=== PATIENT | male | born 1975 | race Two or more races ===

== ENCOUNTER → 2017-09-03 | Outpatient (CLI) | payer MEDICAID | END | disposition home or self-care (01) | LOC: Rad HDHVI 16:00 | PROVIDERS: ATTEND Internal Medicine | DX: J44.9 Chronic obstructive pulmonary disease, unspecified (principal); R07.89 Other chest pain | CPT/HCPCS: 93306 ==

== ENCOUNTER → 2017-09-24 | Outpatient (CLI) | payer MEDICAID ==
[~2017-09-24] VITALS: Ht 167.6 cm; Wt 63.5 kg
== END | disposition home or self-care (01) ==
LOC: Rad HDHVI 10:44
PROVIDERS: ATTEND Internal Medicine
DX: J44.9 Chronic obstructive pulmonary disease, unspecified (principal); R07.89 Other chest pain; Z90.49 Acquired absence of other specified parts of digestive tract
CPT/HCPCS: 93017

== ENCOUNTER 2019-07-22 11:37 | Emergency (ER) | payer SELFPAY ==
[~2019-07-22] VITALS: Ht 167.6 cm; Wt 61.2 kg
[2019-07-22 13:00] VITALS: BP 131/98
== END 2019-07-22 13:07 | disposition home or self-care (01) ==
LOC: ER 11:37
DX: J44.9 Chronic obstructive pulmonary disease, unspecified (principal)
CPT/HCPCS: 71046

== ENCOUNTER 2023-03-27 08:40 | Emergency (ER) | payer MEDICAID ==
[~2023-03-27] VITALS: Ht 167.6 cm; Wt 71.4 kg
[2023-03-27 09:52] LABS: Basophils # (auto) 0 10 ^3/uL (0-0.2); Basophils % (auto) 0.8 % (0.0-2.0); Eosinophils # (auto) 0.1 10 ^3/uL (0-0.8); Eosinophils % (auto) 1.8 % (0.0-7.0); Hematocrit 49.2 % (41.0-53.0); Hemoglobin 17.3 g/dL (13.5-17.5); Lymphocytes # (auto) 1.4 10 ^3/uL (0.4-5.4); Lymphocytes % (auto) 26.7 % (10.0-50.0); Mean Corpuscular Hemoglobin 32.6 pg (28.0-32.0); Mean Corpuscular Hgb Conc. 35.2 g/dL (32.0-36.0); Mean Corpuscular Volume 92.6 fL (80.0-100.0); Monocytes # (auto) 0.4 10 ^3/uL (0-1.3); Monocytes % (auto) 8.6 % (0.0-12.0); Neutrophils # (auto) 3.2 10 ^3/uL (1.6-8.6); Neutrophils % (auto) 62.1 % (37.0-80.0); Nucleated Red Blood Cells % 0.1 %; Red Blood Cells 5.31 10^6/uL (4.5-5.90); Red Cell Distribution Width 12.7 % (11.8-14.3); White Blood Cell 5.2 10^3/uL (4.4-10.8)
[2023-03-27 10:07] LABS: Alanine Aminotransferase 28 U/L (7-40); Alkaline Phosphatase 76 U/L (46-116); Anion Gap 5 (5-15); Aspartate Aminotransferase 25 U/L (13-40); BUN/Creatinine Ratio 10.3 (10.0-20.0); Blood Urea Nitrogen 10 mg/dL (9-23); Calcium 9.5 mg/dL (8.5-10.1); Carbon Dioxide 29 mmol/L (20-30); Chloride 106 mmol/L (98-107); Glucose 92 mg/dL (74-106); Sodium 140 mmol/L (136-145)
[2023-03-27 10:08] LABS: Albumin 4.5 g/dL (3.2-4.8); Bilirubin, Total 0.6 mg/dL (0.2-1.0); Total Protein 6.7 g/dL (5.7-8.2)
[2023-03-27 10:12] LABS: INR 1.05 (0.9-1.15)
[2023-03-27 12:15] LABS: COVID19 ANTIGEN SOFIA FIA NEGATIVE (NEGATIVE)
[2023-03-27] MEDS ORDERED: METH4PAK PO (12:47)
[2023-03-27] MEDS ORDERED: ALBUAER3 IN (12:47)
[2023-03-27 15:15] VITALS: BP 118/82; PULSE 62; TEMP 98.5
[2023-03-27 16:12] VITALS: RESP 18; O2SAT 97
== END 2023-03-27 15:30 | disposition home or self-care (01) ==
LOC: ER 08:40
DX: J45.909 Unspecified asthma, uncomplicated (principal); F17.210 Nicotine dependence, cigarettes, uncomplicated; F12.10 Cannabis abuse, uncomplicated; Z20.822 Contact with and (suspected) exposure to COVID-19
CPT/HCPCS: 36415; 36600; 71045; 80053; 82805; 83880; 84484; 85025; 85379; 85610; 87426

== ENCOUNTER 2023-10-06 00:34 | Emergency (ER) | payer MEDICAID ==
[~2023-10-06] VITALS: Ht 167.6 cm; Wt 72.5 kg
[~2023-10-06 00:34] MED LIST: ALBUAER3 IN; METH4PAK PO
[2023-10-06 00:48] VITALS: BP 132/93; PULSE 70; RESP 16; O2SAT 98
[2023-10-06] MEDS ORDERED: CYCL-611 PO (04:11)
[2023-10-06] MEDS ORDERED: HYDR-4902 PO (04:11)
[2023-10-06] MEDS: FAMOTIDINE 20 MG TAB PO ONE (04:15)
[2023-10-06] MEDS: DexAMETHasone SOD PHOS 10MG/1ML VIAL INJ IM ONE (05:09)
[2023-10-06] MEDS: KETOROLAC TROMETH 60MG/2ML VIAL IM ONE (05:10)
== END 2023-10-06 05:17 | disposition home or self-care (01) ==
LOC: ER 00:34
DX: M51.36 Other intervertebral disc degeneration, lumbar region (principal); M62.830 Muscle spasm of back; J44.9 Chronic obstructive pulmonary disease, unspecified; F17.210 Nicotine dependence, cigarettes, uncomplicated; F12.10 Cannabis abuse, uncomplicated
CPT/HCPCS: 72100; 96372; 99284; J1100; J1885